=== PATIENT | male | born 1980 | race Caucasian/White ===

== ENCOUNTER 2019-04-22 19:15 | Observation (INO) ==
[2019-04-22 19:45] LABS: Bilirubin,Urine Negative (Negative); Blood,Urine Negative (Negative); Clarity,Urine Clear (Clear); Color,Urine Yellow (Yellow); Glucose,Urine (UA) Normal (Normal); Ketones,Urine Negative (Negative); Leukocyte Esterase,Urine Negative (Negative); Nitrite,Urine Negative (Negative); Protein,Urine Negative (Neg-Trace); Specific Gravity,Urine < 1.005 (1.010-1.025); Urobilinogen,Urine Normal (Normal)
[2019-04-22 19:54] LABS: Basophils # 0.1 K/mcL (0.0-0.2); Basophils % 1.6 %; Eosinophils # 0.1 K/mcL (0.0-0.6); Eosinophils % 2.2 %; Hemoglobin 13.4 g/dL (12.9-16.9); Immature Granulocytes % 0.3 % (0-4); Lymphocytes # 1.8 K/mcL (0.6-4.6); Lymphocytes % 28.9 %; Mean Corpuscular HGB Conc 31.9 g/dL (31.6-35.5); Mean Corpuscular Hemoglobin 25.9 pg (28.0-33.3); Mean Corpuscular Volume 81.1 fL (83.0-100.0); Mean Platelet Volume 9.3 fL (9.4-12.4); Monocytes # 0.6 K/mcL (0.0-1.3); Monocytes % 9.3 %; Neutrophils # 3.6 K/mcL (1.6-8.9); Platelet Count 232 K/mcL (140-400); Red Blood Count 5.18 M/mcL (4.19-5.50); Red Cell Distribution Width 14.6 % (11.5-14.5); Segmented Neutrophils % 57.7 %; White Blood Count 6.2 K/mcL (4.3-11.1)
[2019-04-22 19:54] LABS: Amphetamine Screen,Urine Negative ng/mL (Cutoff=1000); Barbiturate Screen,Urine Negative ng/mL (Cutoff=200); Benzodiazepines Screen,Urine Negative ng/mL (Cutoff=200); Cannabinoid Screen,Urine Negative ng/mL (Cutoff = 50); Cocaine Screen,Urine Negative ng/mL (Cutoff= 300); Opiate Screen,Urine Negative ng/mL (Cutoff=300); Phencyclidine Screen,Urine Negative ng/mL (Cutoff=25)
[2019-04-22 20:14] LABS: Acetaminophen < 10 mcg/mL (10-20); BUN/Creatinine Ratio 11 (6-26); Blood Urea Nitrogen 7 mg/dL (6-20); Calcium 9.6 mg/dL (8.6-10.3); Carbon Dioxide 24 mEq/L (23-29); Chloride 107 mEq/L (98-107); Ethanol 260 mg/dL (Less than 10); Glucose 101 mg/dL (70-105); Osmolality,Calculated 294 (280-300); Potassium 3.6 mEq/L (3.5-5.1); Salicylate < 2.5 mg/dL (15.0-30.0); Sodium 143 mEq/L (136-145); eGFR For African Americans > 60 (> 60); eGFR For Non-African Americans > 60 (> 60)
[2019-04-22] MEDS: *HR* LORazepam 2 MG/ML VIAL ONE ×2 (20:43→21:13)
[2019-04-22] MEDS ORDERED: Ammonia Inhalant AMPUL ONE (20:46)
[2019-04-22] MEDS ORDERED: levETIRAcetam 1,000 MG in 0.9 % Sodium Chloride 100 ML IVPB STA (20:49)
[2019-04-22] MEDS ORDERED: *HR* LORazepam 2 MG/ML VIAL IM ONE (20:53)
[2019-04-22] MEDS ORDERED: *HR* LORazepam 2 MG/ML VIAL IVP ONE ×2 (20:53)
[2019-04-22 21:36] LABS: Prolactin 13.28 ng/mL (3.00-14.70)
[2019-04-23] MEDS ORDERED: 0.9 % Sodium Chloride 1,000 ML IV ONE (04:05)
[2019-04-23] MEDS ORDERED: *HR* LORazepam 2 MG/ML VIAL IVP PRN ×3 (11:29)
[2019-04-24] MEDS ORDERED: Naloxone 0.4 MG/ML INJ IVP PRN (05:58)
[2019-04-24 06:32] LABS: Basophils # 0.1 K/mcL (0.0-0.2); Basophils % 1.2 %; Eosinophils # 0.4 K/mcL (0.0-0.6); Eosinophils % 4.8 %; Hematocrit 41.1 % (37.5-50.1); Hemoglobin 12.9 g/dL (12.9-16.9); Immature Granulocytes % 0.1 % (0-4); Lymphocytes # 1.8 K/mcL (0.6-4.6); Lymphocytes % 23.5 %; Mean Corpuscular HGB Conc 31.4 g/dL (31.6-35.5); Mean Corpuscular Volume 82.9 fL (83.0-100.0); Mean Platelet Volume 9.9 fL (9.4-12.4); Monocytes # 0.9 K/mcL (0.0-1.3); Monocytes % 11.6 %; Neutrophils # 4.4 K/mcL (1.6-8.9); Platelet Count 221 K/mcL (140-400); Red Blood Count 4.96 M/mcL (4.19-5.50); Red Cell Distribution Width 14.6 % (11.5-14.5); Segmented Neutrophils % 58.8 %; White Blood Count 7.5 K/mcL (4.3-11.1)
[2019-04-24 06:40] LABS: INR 1.1; Prothrombin Time 12.1 Seconds (9.4-12.1)
[2019-04-24 06:42] LABS: Activated Partial Thrombo Time 33.8 Seconds (26.0-36.0)
[2019-04-24 06:51] LABS: Alanine Aminotransferase 25 Units/L (7-52); Albumin 4.4 g/dL (3.5-5.7); Albumin/Globulin Ratio 1.8 (1.1-2.2); Alkaline Phosphatase 79 Units/L (34-104); Aspartate Amino Transferase 20 Units/L (13-39); BUN/Creatinine Ratio 30 (6-26); Bilirubin,Total 0.7 mg/dL (0.3-1.0); Blood Urea Nitrogen 25 mg/dL (6-20); Calcium 9.4 mg/dL (8.6-10.3); Carbon Dioxide 29 mEq/L (23-29); Chloride 101 mEq/L (98-107); Cholesterol 126 mg/dL (< 200); Globulin 2.5 g/dL (2.4-3.5); Glucose 96 mg/dL (70-105); HDL Cholesterol 42 mg/dL (40-59); LDL Cholesterol,Calculated 66 mg/dL (0-99); Magnesium 2.2 mg/dL (1.6-2.6); Osmolality,Calculated 290 (280-300); Potassium 3.8 mEq/L (3.5-5.1); Sodium 138 mEq/L (136-145); Total Protein 6.9 g/dL (6.4-8.9); Triglycerides 91 mg/dL (< 150); eGFR For African Americans > 60 (> 60); eGFR For Non-African Americans > 60 (> 60)
[2019-04-24] MEDS ORDERED: *HR* LORazepam 0.5 MG TABLET PO PRN (14:34)
[2019-04-24 15:39] VITALS: BP 124/76
[2019-04-24] MEDS ORDERED: risperiDONE 1 MG TABLET PO SCH (21:00)
== END 2019-04-24 17:00 ==
LOC: 3BNU 19:15 → EMEROOARM 19:15 → 3BNU 04-23 09:36
PROVIDERS: ADMIT Internal Medicine Nephrology; ATTEND Internal Medicine Nephrology

== ENCOUNTER 2019-04-24 17:05 | Inpatient (IN) ==
[2019-04-24] MEDS ORDERED: hydrOXYzine pamoate 25 MG CAPSULE PO PRN (17:18)
[2019-04-24] MEDS ORDERED: MOM Conc 10 ML UD.LIQ PO PRN (17:18)
[2019-04-24] MEDS ORDERED: traZODone 50 MG TABLET PO PRN (17:18)
[2019-04-24] MEDS ORDERED: *HR* LORazepam 2 MG/ML VIAL IM PRN (17:18)
[2019-04-24] MEDS ORDERED: Haloperidol Lactate 5 MG/ML VIAL IM PRN (17:18)
[2019-04-24] MEDS ORDERED: Mag Hydrox/Al Hydrox/Simeth 30 ML UDC PO PRN (17:18)
[2019-04-24] MEDS ORDERED: *HR* LORazepam 1 MG TABLET PO PRN (17:18)
[2019-04-24] MEDS ORDERED: Acetaminophen 325 MG TABLET PO PRN (17:18)
[2019-04-24] MEDS ORDERED: *HR* LORazepam 0.5 MG TABLET PO PRN (17:19)
[2019-04-24] MEDS ORDERED: risperiDONE 1 MG TABLET PO SCH (21:00)
[2019-04-25] MEDS ORDERED: risperiDONE 1 MG TABLET PO SCH (21:00)
[2019-04-26 09:23] VITALS: BP 111/74
== END 2019-04-26 16:05 | disposition home or self-care (01) | DRG 751 ==
LOC: 1ANU 17:05
PROVIDERS: ADMIT Psychiatry & Neurology Psychiatry; ATTEND Psychiatry & Neurology Psychiatry

== ENCOUNTER 2019-08-14 16:33 | Inpatient (IN) ==
[2019-08-14] MEDS ORDERED: Tdap (Boostrix) Vaccine 0.5 ML SYRINGE IM ONE (16:44)
[2019-08-14] MEDS ORDERED: Lidocaine 1% 20 ML MDV INFILT ONE (16:45)
[2019-08-14 16:56] LABS: Bilirubin,Urine Negative (Negative); Blood,Urine Negative (Negative); Clarity,Urine Clear (Clear); Color,Urine Yellow (Yellow); Glucose,Urine (UA) Normal (Normal); Ketones,Urine Negative (Negative); Leukocyte Esterase,Urine Negative (Negative); Nitrite,Urine Negative (Negative); Protein,Urine Negative (Neg-Trace); Specific Gravity,Urine 1.007 (1.010-1.025); Urobilinogen,Urine Normal (Normal)
[2019-08-14 17:06] LABS: Amphetamine Screen,Urine Negative ng/mL (Cutoff=1000); Barbiturate Screen,Urine Negative ng/mL (Cutoff=200); Benzodiazepines Screen,Urine Negative ng/mL (Cutoff=200); Cannabinoid Screen,Urine Negative ng/mL (Cutoff = 50); Cocaine Screen,Urine Negative ng/mL (Cutoff= 300); Opiate Screen,Urine Negative ng/mL (Cutoff=300); Phencyclidine Screen,Urine Negative ng/mL (Cutoff=25)
[2019-08-14 17:17] LABS: Basophils # 0.2 K/mcL (0.0-0.2); Basophils % 1.8 %; Eosinophils # 0.3 K/mcL (0.0-0.6); Eosinophils % 3.5 %; Hematocrit 44.8 % (37.5-50.1); Hemoglobin 14.9 g/dL (12.9-16.9); Immature Granulocytes % 0.4 % (0-4); Lymphocytes # 2.4 K/mcL (0.6-4.6); Lymphocytes % 25.8 %; Mean Corpuscular HGB Conc 33.3 g/dL (31.6-35.5); Mean Corpuscular Hemoglobin 26.5 pg (28.0-33.3); Mean Corpuscular Volume 79.6 fL (83.0-100.0); Mean Platelet Volume 9.7 fL (9.4-12.4); Monocytes # 0.7 K/mcL (0.0-1.3); Neutrophils # 5.7 K/mcL (1.6-8.9); Platelet Count 224 K/mcL (140-400); Red Blood Count 5.63 M/mcL (4.19-5.50); Red Cell Distribution Width 17.1 % (11.5-14.5); Segmented Neutrophils % 61.5 %; White Blood Count 9.3 K/mcL (4.3-11.1)
[2019-08-14 17:35] LABS: Acetaminophen < 10 mcg/mL (10-20); BUN/Creatinine Ratio 14 (6-26); Blood Urea Nitrogen 10 mg/dL (6-20); Calcium 9.3 mg/dL (8.6-10.3); Carbon Dioxide 20 mEq/L (23-29); Chloride 103 mEq/L (98-107); Chol/HDL Ratio 3.9 (0-4.9); Cholesterol 179 mg/dL (< 200); Ethanol 221 mg/dL (Less than 10); Glucose 98 mg/dL (70-105); HDL Cholesterol 46 mg/dL (40-59); LDL Cholesterol,Calculated 104 mg/dL (0-99); Osmolality,Calculated 289 (280-300); Potassium 3.3 mEq/L (3.5-5.1); Salicylate < 2.5 mg/dL (15.0-30.0); Sodium 140 mEq/L (136-145); Triglycerides 143 mg/dL (< 150); eGFR For African Americans > 60 (> 60); eGFR For Non-African Americans > 60 (> 60)
[2019-08-14 17:47] LABS: Estimated Average Glucose 126 mg/dl
[2019-08-15] MEDS ORDERED: *HR* LORazepam 1 MG TABLET PO PRN (05:34)
[2019-08-15] MEDS ORDERED: Ibuprofen 400 MG TABLET PO PRN (05:34)
[2019-08-15] MEDS ORDERED: Haloperidol Lactate 5 MG/ML VIAL IM PRN (05:34)
[2019-08-15] MEDS ORDERED: Mag Hydrox/Al Hydrox/Simeth 30 ML UDC PO PRN (05:34)
[2019-08-15] MEDS ORDERED: *HR* LORazepam 2 MG/ML VIAL IM PRN (05:34)
[2019-08-15] MEDS ORDERED: MOM Conc 10 ML UD.LIQ PO PRN (05:34)
[2019-08-15] MEDS ORDERED: Petrolatum, White OINT.PACK TP PRN (10:01)
[2019-08-15] MEDS: hydrOXYzine pamoate 25 MG CAPSULE PO PRN (20:55)
[2019-08-15] MEDS: risperiDONE 1 MG TABLET PO SCH (20:55)
[2019-08-15] MEDS: traZODone 50 MG TABLET PO PRN (20:55)
[2019-08-16 10:53] LABS: Chol/HDL Ratio 3.6 (0-4.9)
[2019-08-16 11:17] LABS: Hepatitis B Surface Antigen Nonreactive (Nonreactive)
[2019-08-16 11:24] LABS: Estimated Average Glucose 126 mg/dl
[2019-08-16 11:45] LABS: HIV-1&2 Antibody & p24 Ag Nonreactive (Nonreactive)
[2019-08-16 11:46] LABS: Hepatitis B Core IgM Nonreactive (Nonreactive)
[2019-08-16 11:47] LABS: Hepatitis A Antibody IgM Nonreactive (Nonreactive); Hepatitis C Virus Antibody Nonreactive (Nonreactive)
[2019-08-16] MEDS: traZODone 50 MG TABLET PO PRN (20:50)
[2019-08-16] MEDS: risperiDONE 1 MG TABLET PO SCH (20:50)
[2019-08-16] MEDS: hydrOXYzine pamoate 25 MG CAPSULE PO PRN (20:50)
[2019-08-17] MEDS: hydrOXYzine pamoate 25 MG CAPSULE PO PRN (20:10)
[2019-08-17] MEDS: traZODone 50 MG TABLET PO PRN (20:10)
[2019-08-17] MEDS ORDERED: risperiDONE 1 MG TABLET PO SCH (21:00)
[2019-08-18 09:08] VITALS: BP 108/68
== END 2019-08-18 11:05 | disposition home or self-care (01) | DRG 751 ==
LOC: EMEROOARM 16:33 → 1ANU 16:33
PROVIDERS: ADMIT Psychiatry & Neurology Psychiatry; ATTEND Psychiatry & Neurology Psychiatry

== ENCOUNTER 2019-10-08 13:21 | Inpatient (IN) ==
[2019-10-08 14:28] LABS: Bilirubin,Urine Negative (Negative); Blood,Urine Negative (Negative); Clarity,Urine Clear (Clear); Color,Urine Yellow (Yellow); Glucose,Urine (UA) Normal (Normal); Ketones,Urine Negative (Negative); Leukocyte Esterase,Urine Negative (Negative); Nitrite,Urine Negative (Negative); Protein,Urine Negative (Neg-Trace); Specific Gravity,Urine 1.008 (1.010-1.025); Urobilinogen,Urine Normal (Normal)
[2019-10-08 14:32] LABS: Amphetamine Screen,Urine Negative ng/mL (Cutoff=1000); Barbiturate Screen,Urine Negative ng/mL (Cutoff=200); Benzodiazepines Screen,Urine Negative ng/mL (Cutoff=200); Cannabinoid Screen,Urine Negative ng/mL (Cutoff = 50); Cocaine Screen,Urine Negative ng/mL (Cutoff= 300); Opiate Screen,Urine Negative ng/mL (Cutoff=300); Phencyclidine Screen,Urine Negative ng/mL (Cutoff=25)
[2019-10-08 14:35] LABS: Hematocrit 45.5 % (37.5-50.1); Hemoglobin 15.1 g/dL (12.9-16.9); Mean Corpuscular HGB Conc 33.2 g/dL (31.6-35.5); Mean Corpuscular Hemoglobin 26.9 pg (28.0-33.3); Mean Corpuscular Volume 81.1 fL (83.0-100.0); Platelet Count 209 K/mcL (140-400); Red Blood Count 5.61 M/mcL (4.19-5.50); Red Cell Distribution Width 15.3 % (11.5-14.5); White Blood Count 7.3 K/mcL (4.3-11.1)
[2019-10-08 14:44] LABS: Acetaminophen < 10 mcg/mL (10-20); BUN/Creatinine Ratio 14 (6-26); Blood Urea Nitrogen 11 mg/dL (6-20); Calcium 9.6 mg/dL (8.6-10.3); Carbon Dioxide 22 mEq/L (23-29); Chloride 108 mEq/L (98-107); Ethanol 210 mg/dL (Less than 10); Glucose 83 mg/dL (70-105); Osmolality,Calculated 291 (280-300); Potassium 3.6 mEq/L (3.5-5.1); Salicylate < 2.5 mg/dL (15.0-30.0); Sodium 141 mEq/L (136-145); eGFR For African Americans > 60 (> 60); eGFR For Non-African Americans > 60 (> 60)
[2019-10-08 14:57] LABS: Thyroid Stimulating Hormone 1.624 mcIU/mL (0.340-5.600)
[2019-10-08] MEDS ORDERED: Acetaminophen 325 MG TABLET PO PRN (22:30)
[2019-10-08] MEDS ORDERED: hydrOXYzine pamoate 25 MG CAPSULE PO PRN (22:30)
[2019-10-08] MEDS ORDERED: Mag Hydrox/Al Hydrox/Simeth 30 ML UDC PO PRN (22:30)
[2019-10-08] MEDS ORDERED: *HR* LORazepam 2 MG/ML VIAL IM PRN (22:30)
[2019-10-08] MEDS ORDERED: MOM Conc 10 ML UD.LIQ PO PRN (22:30)
[2019-10-08] MEDS ORDERED: traZODone 50 MG TABLET PO PRN (22:30)
[2019-10-08] MEDS ORDERED: Haloperidol Lactate 5 MG/ML VIAL IM PRN (22:30)
[2019-10-08] MEDS ORDERED: *HR* LORazepam 1 MG TABLET PO PRN (22:30)
[2019-10-09] MEDS: Nicotine 21 MG PATCH.TD24 TD SCH (08:26)
[2019-10-09] MEDS: ARIPiprazole 10 MG TABLET PO SCH (12:14)
[2019-10-10] MEDS: Nicotine 21 MG PATCH.TD24 TD SCH (08:46)
[2019-10-10] MEDS: ARIPiprazole 10 MG TABLET PO SCH (08:46)
[2019-10-10 10:19] VITALS: BP 100/70
== END 2019-10-10 09:05 | disposition home or self-care (01) | DRG 751 ==
LOC: 1ANU 13:21 → EMEROOARM 13:21 → SUATTDRO 22:30 → 1ANU 22:59 → UNDODISIN 22:59
PROVIDERS: ADMIT Psychiatry & Neurology Psychiatry; ATTEND Psychiatry & Neurology Psychiatry